=== PATIENT | male | born 2000 | race Caucasian/White ===

== ENCOUNTER 2022-08-01 19:44 | Emergency (ER) | payer OTHER ==
--- NOTE | 2022-08-01 20:45 | ED Physician Documentation ---
History of Present Illness - Stated complaint Stated Complaint: SHOCKED ON R HAND - Chief complaint Chief Complaint: General - History obtained from History obtained from: Patient - Additonal information Additional information: 22-year-old gentleman who is active duty in the [place] who sustained a static shock to his right hand about an hour and a half ago. He feels fine. Did not blackout. No chest pain. Review of Systems Cardiac: denies: Chest pain / pressure, Palpitations Respiratory: denies: Dyspnea, Cough GI: denies: Abdominal Pain, Nausea, Vomiting PD PAST MEDICAL HISTORY - Present Medications Home Medications: Ambulatory Orders Medication Instructions Recorded Confirmed No Known Home Medications 08/01/22 08/01/22 - Allergies Allergies/Adverse Reactions: Allergies Allergy/AdvReac Type Severity Reaction Status Date / Time No Known Drug Allergies Allergy Verified 08/01/22 19:54 PD ED PE NORMAL - Vitals Vital signs reviewed: Yes - General General: Alert and oriented X 3, No acute distress - Cardiac Cardiac: RRR, No murmur - Respiratory Respiratory: No respiratory distress, Clear bilaterally - Abdomen Abdomen: Non tender - Extremities Extremities: Other (R hand, NTTP/FROM) - Neuro Neuro: Alert and oriented X 3, Normal speech Results - Vitals Vitals: Vital Signs - 24 hr 08/01/22 08/01/22 08/01/22 19:51 20:52 20:53 Temperature 36.5 C Heart Rate 73 72 72 Respiratory 18 16 16 Rate Blood Pressure 127/66 116/72 116/72 O2 Saturation 100 100 100 Oxygen O2 Source Room air - EKG (time done) 1955 Rate: Rate (enter#) (72) Rhythm: NSR [place]: Normal Intervals: Normal [place] QRS: Normal Ischemia: Normal ST segments Computer interpretation: Agree with computer PD Medical Decision Making - ED course ED course: 22-year-old gentleman with electric shock to the right hand with no cardiac symptoms and negative EKG. No persistent symptoms. No further work-up is necessary. Departure - Departure Disposition: 01 Home, Self Care Clinical Impression: Electric shock Qualifiers: Encounter type: initial encounter Qualified Code(s): T75.4XXA - Electrocution, initial encounter Condition: Good Record reviewed to determine appropriate education?: Yes Instructions: Shock Electrical First Aid Comments: But your flight surgeon or PCM know that this happened but otherwise unless you develop symptoms no specific follow-up is necessary. Discharge Date/Time: 08/01/22 20:55
[2022-08-01 20:53] VITALS: BP 116/72
== END 2022-08-01 20:55 | disposition home or self-care (01) ==
LOC: ED 19:44
DX: T75.4XXA Electrocution, initial encounter (principal)
CPT/HCPCS: 93005; 99283